=== PATIENT | male | born 2000 | race Two or more races ===

== ENCOUNTER 2024-05-15 01:53 | Emergency (ER) | payer MEDICAID, OTHER ==
[~2024-05-15] VITALS: Ht 180.3 cm; Wt 90.2 kg
[2024-05-15 02:13] VITALS: BP 139/79; PULSE 118; RESP 20; O2SAT 95
[2024-05-15] MEDS: ONDANSETRON ODT 4 MG TAB PO ONE (02:24)
[2024-05-15] MEDS ORDERED: IBUP-1455 PO (02:27)
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
== END 2024-05-15 02:35 | disposition home or self-care (01) ==
LOC: ER 01:53
DX: S63.285A Dislocation of proximal interphalangeal joint of left ring finger, initial encounter (principal); W51.XXXA Accidental striking against or bumped into by another person, initial encounter; Y93.89 Activity, other specified; Y92.89 Other specified places as the place of occurrence of the external cause; Y99.8 Other external cause status
CPT/HCPCS: 26770; 99284; Q0162

== ENCOUNTER 2024-05-18 20:11 | Emergency (ER) | payer MEDICAID ==
[~2024-05-18] VITALS: Ht 182.9 cm; Wt 84.9 kg
[~2024-05-18 20:11] MED LIST: IBUP-1455 PO
[2024-05-18 20:18] VITALS: BP 124/79; PULSE 84; RESP 18; O2SAT 97
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
== END 2024-05-18 23:35 | disposition left against medical advice (07) ==
LOC: ER 20:11
DX: S63.285A Dislocation of proximal interphalangeal joint of left ring finger, initial encounter (principal); X50.9XXA Other and unspecified overexertion or strenuous movements or postures, initial encounter; Y93.89 Activity, other specified; Y92.89 Other specified places as the place of occurrence of the external cause; Y99.8 Other external cause status
CPT/HCPCS: 26770